=== PATIENT | male | born 1990 | race Caucasian/White ===

== ENCOUNTER → 2016-10-30 | Outpatient (CLI) | payer BC ==
--- NOTE | 2016-10-30 09:04 | DIAGNOSTIC IMAGING REPORT ---
TESTICULAR ULTRASOUND HISTORY: TESTICULAR ANOMALY COMPARISON: None. FINDINGS: Right testis: 4.6 x 3.2 x 2.4 cm. There are no intratesticular masses. Normal color flow. No significant hydrocele. A 3 mm cyst within the epididymal head. Left testis: 4.7 x 3.0 x 2.1 cm. There are no intratesticular masses. Normal color flow. No significant hydrocele. The epididymis is unremarkable. IMPRESSION: 1. Normal bilateral testes. 2. A 3 mm cyst within the right epididymal head. Electronically signed by: Yasir Bean M.D. 10/30/2016 9:02 AM Dictated Date/Time: 10/30/2016 9:01 AM
== END | disposition home or self-care (01) ==
LOC: C.ULTRBC 08:26
PROVIDERS: ATTEND Internal Medicine
DX: Q55.29 Other congenital malformations of testis and scrotum (principal); N50.3 Cyst of epididymis

== ENCOUNTER → 2017-02-02 | Outpatient (CLI) | payer BC ==
[~2017-02-02] MED LIST: GADAVIST IV PRN
--- NOTE | 2017-02-02 19:14 | DIAGNOSTIC IMAGING REPORT ---
BRAIN COMBO FOR IAC CLINICAL HISTORY: Hearing loss, right greater than left. Status post tube myringotomy. COMPARISON STUDY: No previous studies for comparison. TECHNIQUE: Utilizing a 1.5 Guera magnet and dedicated coil, multiplanar, multiecho imaging of the brain was performed pre and postcontrast administration with thin cut imaging through the internal auditory canals. Injection of 8 cc of Gadavist IV was uneventful. FINDINGS: There are no areas of restricted diffusion. No acute intracranial hemorrhage, midline shift or mass effect is present. Brain volume is normal. Ventricular system is normal. Basilar cisterns are patent. There are no extra-axial collections. Flow-voids for the major intracranial vessels are present. There are a few possible punctate foci of signal abnormality on the coronal FLAIR sequence which are doubtful significance. There is no mass or abnormal enhancement within the internal auditory canals. The semicircular canals are intact. No fluid is present within the mastoid air cells. An opacified right posterior ethmoid air cell is noted. Sinuses are otherwise clear. Calvarial signal is normal. IMPRESSION: 1. Unremarkable MRI of the brain. 2. No mass or pathologic enhancement within the internal auditory canals. Electronically signed by: Tyson Acosta M.D. 02/02/2017 7:13 PM Dictated Date/Time: 02/02/2017 7:04 PM
== END | disposition home or self-care (01) ==
LOC: C.MRI 10:53
PROVIDERS: ATTEND Physician Assistant
DX: Z96.22 Myringotomy tube(s) status (principal); H90.2 Conductive hearing loss, unspecified; H91.8X1 Other specified hearing loss, right ear; H91.90 Unspecified hearing loss, unspecified ear

== ENCOUNTER → 2017-02-16 | Outpatient (CLI) | payer BC ==
[2017-02-16 11:18] LABS: HEMATOCRIT 42.9 % (42-52); MEAN CELL VOLUME 91.5 fL (80-100); MEAN CORPUSCULAR HEMOGLOBIN 30.9 pg (25-34); MEAN CORPUSCULAR HGB CONC 33.8 g/dl (32-36); MEAN PLATELET VOLUME 10.8 fL (7.4-10.4); PLATELET COUNT 233 K/uL (130-400); RED BLOOD COUNT 4.69 M/uL (4.7-6.1); WHITE BLOOD COUNT 5.78 K/uL (4.8-10.8)
[2017-02-16 11:39] LABS: ESTIMATED AVERAGE GLUCOSE 108 mg/dl; HA1C FLAG Normal (Normal)
[2017-02-16 11:41] LABS: ALT/SGPT 25 U/L (12-78); BLOOD UREA NITROGEN 10 mg/dl (7-18); BUN/CREATININE RATIO 9.1 (10-20); CALCIUM 8.5 mg/dl (8.5-10.1); CARBON DIOXIDE 28 mmol/L (21-32); CHLORIDE 106 mmol/L (98-107); CHOLESTEROL 164 mg/dl (0-200); GLUCOSE 89 mg/dl (70-99); POTASSIUM 3.8 mmol/L (3.5-5.1); SODIUM 142 mmol/L (136-145); TRIGLYCERIDES 120 mg/dl (0-150); VERY LOW DENSITY LIPOPROT CALC 24 mg/dl
[2017-02-16 11:51] LABS: ALB/GLOB RATIO 1.4 (0.9-2); ALKALINE PHOSPHATASE 61 U/L (45-117); AST/SGOT 21 U/L (15-37); CHOLESTEROL/HDL RATIO 2.7; HDL CHOLESTEROL 60 mg/dl; LDL CHOLESTEROL CALCULATED 80 mg/dl
== END | disposition home or self-care (01) ==
LOC: C.LABBC 08:00
PROVIDERS: ATTEND Internal Medicine
DX: Z00.00 Encounter for general adult medical examination without abnormal findings (principal); E16.2 Hypoglycemia, unspecified; Z86.39 Personal history of other endocrine, nutritional and metabolic disease